=== PATIENT | male | born 1990 | race Two or more races ===

== ENCOUNTER 2021-01-01 19:06 | Emergency (ER) | payer SELFPAY ==
[~2021-01-01] VITALS: Ht 185.4 cm; Wt 65.5 kg
[2021-01-01 21:49] VITALS: BP 133/86
== END 2021-01-01 21:51 | disposition home or self-care (01) ==
LOC: ED 19:37
DX: R10.31 Right lower quadrant pain (principal); R30.0 Dysuria; F17.210 Nicotine dependence, cigarettes, uncomplicated
CPT/HCPCS: 36415; 74176; 80053; 81003; 85025; 96372; 99284; 99406; J1885